=== PATIENT | female | born 1950 | race Caucasian/White ===

== ENCOUNTER 2021-04-07 13:30 | Outpatient (CLI) | payer MEDICARE, OTHER | END 2021-04-07 13:31 | disposition short-term general hospital (02) | LOC: EMS 13:30 | DX: R07.9 Chest pain, unspecified (principal); M79.602 Pain in left arm; R68.84 Jaw pain | CPT/HCPCS: A0425; A0427 ==

== ENCOUNTER 2023-06-09 08:00 | Outpatient (CLI) | payer MEDICARE, OTHER | END 2023-06-09 23:59 | disposition home or self-care (01) | LOC: LAB.S 08:00 | PROVIDERS: ATTEND Nurse Practitioner | DX: N39.0 Urinary tract infection, site not specified (principal) | CPT/HCPCS: 87086; 87181 ==